=== PATIENT | male | born 1935 | race African-American/Black ===

== ENCOUNTER 2018-08-25 15:03 | Outpatient (CLI) | payer OTHER ==
[2018-09-01] MEDS ORDERED: ALLOPURINOL100 MG PO (08:08)
[2018-09-01] MEDS ORDERED: AMLODIPINE BESY10 MG PO (08:09)
[2018-09-01] MEDS ORDERED: PROSTATE 2.4 C1 EACH PO (08:09)
[2018-09-01] MEDS ORDERED: CENTRUM ADULTS1 EACH PO (08:09)
== END 2018-08-25 15:08 | disposition home or self-care (01) ==
LOC: LAB 15:03
DX: N30.00 Acute cystitis without hematuria (principal); R82.79 Other abnormal findings on microbiological examination of urine

== ENCOUNTER → 2018-08-25 | Outpatient (CLI) | payer OTHER ==
[~2018-08-25] MED LIST: ALLOPURINOL100 MG PO; AMLODIPINE BESY10 MG PO; CENTRUM ADULTS1 EACH PO; PROSTATE 2.4 C1 EACH PO
== END | disposition home or self-care (01) ==
LOC: TOM 13:41
DX: C61 Malignant neoplasm of prostate (principal)

== ENCOUNTER 2018-08-26 10:33 | Outpatient (CLI) | payer OTHER ==
[2018-09-01] MEDS ORDERED: ALLOPURINOL100 MG PO (08:08)
[2018-09-01] MEDS ORDERED: PROSTATE 2.4 C1 EACH PO (08:09)
[2018-09-01] MEDS ORDERED: AMLODIPINE BESY10 MG PO (08:09)
[2018-09-01] MEDS ORDERED: CENTRUM ADULTS1 EACH PO (08:09)
== END 2018-08-26 10:45 | disposition home or self-care (01) ==
LOC: LAB 10:33
DX: C61 Malignant neoplasm of prostate (principal); N30.00 Acute cystitis without hematuria

== ENCOUNTER 2018-08-28 10:07 | Outpatient (CLI) | payer OTHER ==
[2018-09-01] MEDS ORDERED: ALLOPURINOL100 MG PO (08:08)
[2018-09-01] MEDS ORDERED: CENTRUM ADULTS1 EACH PO (08:09)
[2018-09-01] MEDS ORDERED: AMLODIPINE BESY10 MG PO (08:09)
[2018-09-01] MEDS ORDERED: PROSTATE 2.4 C1 EACH PO (08:09)
== END 2018-08-28 10:24 | disposition home or self-care (01) ==
LOC: LAB 10:07
DX: C61 Malignant neoplasm of prostate (principal)

== ENCOUNTER 2018-09-02 05:35 | Day surgery (SDC) | payer OTHER | END 2018-09-02 13:20 | disposition home or self-care (01) | LOC: CIR.AMB 05:35 | DX: N35.814 Other anterior urethral stricture, male (principal); N50.89 Other specified disorders of the male genital organs; R33.8 Other retention of urine ==